=== PATIENT | male | born 1995 | race Caucasian/White ===

== ENCOUNTER 2018-05-16 13:48 | Emergency (ER) | payer BC, SELFPAY ==
[2018-05-16 13:53] VITALS: BP 130/87; PULSE 82; RESP 16; TEMP 36.6; O2SAT 99
--- NOTE | 2018-05-16 14:39 | W.ED.GENAD ---
Discharge Plan Disposition Patient Disposition: HOME Condition: Stable Discharge Details Chief Complaint: PsychEval Clinical Impression: Anxiety Primary Care Provider: Sherwin Mixon ED Provider: Brendon Delvalle Home Meds and New Rx's Prescriptions: No Action No Known Home Meds RF: 0 Discharge Instructions Instructions: Stress (ED), Anxiety (ED) Additional Instructions: Please keep your follow-up appointment with [facility] for further discussion of your anxiety and stress. Please follow-up with primary care provider for further reassessment preferably next couple weeks to see if any further testing is needed. Referrals: [facility] [Provider Group] (Call the office and arrange follow-up appointment preferably in the next 2 weeks.) Discharge Data Discharge Date/Time-TO BE ENTERED AT DEPARTURE: 05/16/18 17:45 Medical Decision Making Patient presenting to the emergency department for chief complaint of confusion. Patient and his employer has noticed since February the patient has had worsening confusion, difficulty concentrating, some anxiety and increased stress which patient states it causes occasional chest discomfort, insomnia worsening appetite and lack of interest in his previous activities. Patient denies any suicidal or homicidal thoughts. 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 Patient does state that he occasionally feels down but does not go into any further details. Physical exam is unremarkable for any specific findings with normal neurological cardiac respiratory and HEENT exam. Plan to check labs including thyroid given patient stating insomnia weight loss but I am concerned about patient stating some may be underlying depression anxiety. Patient I do feel would benefit from speaking with mental health services given possible mental health component to his complaints. Review of labs is unremarkable and shows no worrisome findings. Mental health evaluation did show some signs of anxiety that may be contributing to his symptoms but no emergent need of admission or treatment at this time. Given that patient did report to mental health provider that he had a fall in October that he was not seen for with symptoms that sound consistent with concussion patient was offered CT imaging. After discussion of risks and benefit of CT imaging patient did want this performed. Images were reviewed and show no acute findings. Patient was discharged to keep a follow-up appointment with [facility] along with following up with [facility] internal medicine which he states he is already gone the paperwork for establishment of primary care there. Return precautions were discussed. After discussion of diagnosis and plan of care patient has no further needs, questions, or concerns and states clear understanding to return to the emergency department for any worsening symptoms. HPI General Mode of arrival: ambulatory. Date/Time Provider Initiated Documentation: 05/16/18 14:02. Limitations to Documentation: no limitations. Information obtained by: patient and RN notes reviewed. History of Present Illness 22 year old M presents to the emergency department with the chief complaint of confusion, Quality is described as other (denies pain), Patient started experiencing this month(s) (4) and it has been constant. No relieving factors improve symptom(s), No exacerbating factors reported . Patient notes no other symptoms.. Patient did receive the following treatments prior to arrival, none Related Data Home Medications Medication Instructions Recorded Confirmed Unknown [No Known Home Meds] 05/16/18 05/16/18 Allergies Allergy/AdvReac Type Severity Reaction Status Date / Time No Known Allergies Allergy Unverified 05/16/18 14:29 General Stated Complaint: PsychEval RAOUL: 2 Review of Systems Constitutional Denies body ache(s), Denies chills, Denies fever(s), Denies weight gain and Reports weight loss Eyes Denies change in vision ENT Denies sore throat and Denies throat swelling Cardiovascular Reports chest pain and Denies dyspnea Respiratory Denies cough and Denies dyspnea Gastrointestinal Denies abdominal pain, Denies diarrhea, Denies nausea and Denies vomiting Genitourinary Denies difficulty urinating and Denies dysuria Neurologic Reports behavioral changes and Reports confusion Psychiatric Reports abnormal sleep pattern, Reports anxiety, Reports behavioral changes, Reports change in appetite, Reports confusion, Reports depression, Reports difficulty concentrating, Denies panic attacks, Denies paranoia, Denies homicidal ideation and Denies suicidal ideation Endocrine Denies cold intolerance and Denies heat intolerance Hematologic/Lymphatic Denies easy bleeding and Denies easy bruising Allergic/Immunologic Denies throat swelling [facility] Medical History ADD (attention deficit disorder) (Acute) Social History Smoking/Tobacco Use Status: Former Tobacco Use Substance use type: former substance user and marijuana Do you feel safe at home: Yes Do you feel safe in your relationship?: Yes Exam Const General: cooperative Orientation: alert, awake and oriented x3 Limitations: mental status not altered HENAK Head: normal to inspection, normocephalic and atraumatic Ears: hearing grossly normal bilaterally Mouth: moist mucous membranes Eyes General: appearance normal, both eyes and all related structures Pupils: PERRL EOM: EOM intact bilaterally Neck Thyroid: thyroid normal Resp Effort & Inspection: normal respiratory effort, able to speak in complete sentences and no respiratory distress Auscultation: clear to auscultation bilaterally Cardio Rate: regular rate and not tachycardic Rhythm: regular rhythm Heart Sounds: S1 normal, S2 normal, no click, no gallops, no murmurs and no rubs Neuro General: alert, awake, oriented x3, gait normal, moves all extremities, no meningeal signs, no focal motor deficits, CN's II-XI intact bilaterally and not confused Cognition: normal cognition Speech: speech normal Gait: normal gait Motor: muscle tone normal throughout, strength 5/5 throughout and no pronator drift Sensory Exam: no sensory deficits noted Coordination: fjblpc-[id number]-pfra test normal, qdln-nk-lkso test normal, Romberg test normal, tandem gait normal, Does not sway with eyes open, rapid alternating movement UE normal and rapid alternating movement LE normal Psych Speech and Movement: speech and movement normal and speech clear Mood: not paranoid Affect: blunted Attitude: cooperative Thought Process: tangential Thought Content: normal, no homicidality and suicidality Course Vital Signs Temperature 36.6 C 05/16/18 13:53 Pulse 82 05/16/18 13:53 Respiratory Rate 16 05/16/18 13:53 Blood Pressure 130/87 05/16/18 13:53 Pulse Oximetry 99 05/16/18 13:53 Temperature 36.6 C 05/16/18 13:53 Temperature Source Skin 05/16/18 13:53 Pulse 82 05/16/18 13:53 Respiratory Rate 16 05/16/18 13:53 Respiratory Effort Non-Labored 05/16/18 13:56 Blood Pressure 130/87 05/16/18 13:53 Pulse Oximetry 99 05/16/18 13:53 Oxygen Delivery Method Room Air 05/16/18 13:53 Oxygen Flow Rate 0 05/16/18 13:53
--- NOTE | 2018-05-16 14:42 | ED.GENADUL_ITS ---
Discharge Plan Disposition Patient Disposition: HOME Condition: Stable Discharge Details Chief Complaint: PsychEval Clinical Impression: Anxiety Primary Care Provider: Sherwin Mixon ED Provider: Brendon Delvalle Home Meds and New Rx's Prescriptions: No Action No Known Home Meds RF: 0 Discharge Instructions Instructions: Stress (ED), Anxiety (ED) Additional Instructions: Please keep your follow-up appointment with [facility] for further discussion of your anxiety and stress. Please follow-up with primary care provider for further reassessment preferably next couple weeks to see if any further testing is needed. Referrals: [facility] [Provider Group] (Call the office and arrange follow- up appointment preferably in the next 2 weeks.) Discharge Data Discharge Date/Time-TO BE ENTERED AT DEPARTURE: 05/16/18 17:45 Medical Decision Making Patient presenting to the emergency department for chief complaint of confusion. Patient and his employer has noticed since February the patient has had worsening confusion, difficulty concentrating, some anxiety and increased stress which patient states it causes occasional chest discomfort, insomnia worsening appetite and lack of interest in his previous activities. Patient denies any suicidal or homicidal thoughts. 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 Patient does state that he occasionally feels down but does not go into any further details. Physical exam is unremarkable for any specific findings with normal neurological cardiac respiratory and HEENT exam. Plan to check labs including thyroid given patient stating insomnia weight loss but I am concerned about patient stating some may be underlying depression anxiety. Patient I do feel would benefit from speaking with mental health services given possible mental health component to his complaints. Review of labs is unremarkable and shows no worrisome findings. Mental health evaluation did show some signs of anxiety that may be contributing to his symptoms but no emergent need of admission or treatment at this time. Given that patient did report to mental health provider that he had a fall in October that he was not seen for with symptoms that sound consistent with concussion patient was offered CT imaging. After discussion of risks and benefit of CT imaging patient did want this performed. Images were reviewed and show no acute findings. Patient was discharged to keep a follow-up appointment with [facility] along with following up with [facility] internal medicine which he states he is already gone the paperwork for establishment of primary care there. Return precautions were discussed. After discussion of diagnosis and plan of care patient has no further needs, questions, or concerns and states clear understanding to return to the emergency department for any worsening symptoms. HPI General Mode of arrival: ambulatory . Date/Time Provider Initiated Documentation: 05/16/18 14:02 . Limitations to Documentation: no limitations . Information obtained by: patient and RN notes reviewed . History of Present Illness 22 year old M presents to the emergency department with the chief complaint of confusion, Quality is described as other (denies pain), Patient started experiencing this month(s) (4) and it has been constant. No relieving factors improve symptom(s), No exacerbating factors reported . Patient notes no other symptoms.. Patient did receive the following treatments prior to arrival, none Related Data Home Medications Medication Instructions Recorded Confirmed Unknown [No Known Home Meds] 05/16/18 05/16/18 Allergies Allergy/AdvReac Type Severity Reaction Status Date / Time No Known Allergies Allergy Unverified 05/16/18 14:29 General Stated Complaint: PsychEval RAOUL: 2 Review of Systems Constitutional Denies body ache(s), Denies chills, Denies fever(s), Denies weight gain and Reports weight loss Eyes Denies change in vision ENT Denies sore throat and Denies throat swelling Cardiovascular Reports chest pain and Denies dyspnea Respiratory Denies cough and Denies dyspnea Gastrointestinal Denies abdominal pain, Denies diarrhea, Denies nausea and Denies vomiting Genitourinary Denies difficulty urinating and Denies dysuria Neurologic Reports behavioral changes and Reports confusion Psychiatric Reports abnormal sleep pattern, Reports anxiety, Reports behavioral changes, Reports change in appetite, Reports confusion, Reports depression, Reports difficulty concentrating, Denies panic attacks, Denies paranoia, Denies homicidal ideation and Denies suicidal ideation Endocrine Denies cold intolerance and Denies heat intolerance Hematologic/Lymphatic Denies easy bleeding and Denies easy bruising Allergic/Immunologic Denies throat swelling [facility] Medical History ADD (attention deficit disorder) (Acute) Social History Smoking/Tobacco Use Status: Former Tobacco Use Substance use type: former substance user and marijuana Do you feel safe at home: Yes Do you feel safe in your relationship?: Yes Exam Const General: cooperative Orientation: alert, awake and oriented x3 Limitations: mental status not altered HENNY Head: normal to inspection, normocephalic and atraumatic Ears: hearing grossly normal bilaterally Mouth: moist mucous membranes Eyes General: appearance normal, both eyes and all related structures Pupils: PERRL EOM: EOM intact bilaterally Neck Thyroid: thyroid normal Resp Effort & Inspection: normal respiratory effort, able to speak in complete sentences and no respiratory distress Auscultation: clear to auscultation bilaterally Cardio Rate: regular rate and not tachycardic Rhythm: regular rhythm Heart Sounds: S1 normal, S2 normal, no click, no gallops, no murmurs and no rubs Neuro General: alert, awake, oriented x3, gait normal, moves all extremities, no meningeal signs, no focal motor deficits, CN's II-XI intact bilaterally and not confused Cognition: normal cognition Speech: speech normal Gait: normal gait Motor: muscle tone normal throughout, strength 5/5 throughout and no pronator drift Sensory Exam: no sensory deficits noted Coordination: azhnso-nt-eute test normal, zoiz-uc-ytzc test normal, Romberg test normal, tandem gait normal, Does not sway with eyes open, rapid alternating movement UE normal and rapid alternating movement LE normal Psych Speech and Movement: speech and movement normal and speech clear Mood: not paranoid Affect: blunted Attitude: cooperative Thought Process: tangential Thought Content: normal, no homicidality and suicidality Course Vital Signs Temperature 36.6 C 05/16/18 13:53 Pulse 82 05/16/18 13:53 Respiratory Rate 16 05/16/18 13:53 Blood Pressure 130/87 05/16/18 13:53 Pulse Oximetry 99 05/16/18 13:53 Temperature 36.6 C 05/16/18 13:53 Temperature Source Skin 05/16/18 13:53 Pulse 82 05/16/18 13:53 Respiratory Rate 16 05/16/18 13:53 Respiratory Effort Non-Labored 05/16/18 13:56 Blood Pressure 130/87 05/16/18 13:53 Pulse Oximetry 99 05/16/18 13:53 Oxygen Delivery Method Room Air 05/16/18 13:53 Oxygen Flow Rate 0 05/16/18 13:53
[2018-05-16 14:50] LABS: Bilirubin Negative (Negative); Blood Negative (Negative); Clarity Clear; Glucose Negative (Negative); Ketones Negative (Negative); Leukocyte Esterase Negative (Negative); Nitrite Negative (Negative); Specific Gravity 1.015 (1.005-1.025); Urobilinogen 0.2 EU/dL (Up TO 0.2); pH 5.5 (5-8)
[2018-05-16 15:05] LABS: Abs Immature Grans 0.02 k/cumm (0.0-0.09); Absolute Basophil Count 0.02 k/cumm (0.0-0.2); Absolute Eosinophil Count 0.03 k/cumm (0.0-0.7); Absolute Lymphocyte Count 1.31 k/cumm (1.2-3.4); Absolute Monocyte Count 0.49 k/cumm (0.11-0.7); Absolute Neutrophil Count 6.15 k/cumm (1.2-6.7); Basophils % 0.2; Eosinophils % 0.4; HCT 42.5 % (40.0-50.0); HGB 14.8 g/dL (13.5-17.5); Immature Grans % 0.2; Lymphocytes % 16.3; Mean Corp. HGB Concentration 34.8 g/dL (32.0-36.0); Monocytes % 6.1; Neutrophils % 76.8; Platelet Count 248 x1000/uL (130-400); RBC 4.94 m/cumm (4.50-6.00); RBC Distribution Width 12.4 % (11.8-14.1); White Blood Cell Count 8.02 k/cumm (4.4-10.8)
[2018-05-16 15:30] LABS: ALT 27 U/L (12-78); AST 24 U/L (15-37); Albumin 4.9 g/dL (3.4-5.0); Alkaline Phosphatase 69 U/L (46-116); Anion Gap 10.4 mmol/L (3-11); BUN 18 mg/dL (7-18); Bilirubin, Total 0.6 mg/dL (0.2-1.0); CO2 28.6 mmol/L (21.0-32.0); CREATININE 0.97 mg/dL (0.70-1.30); Calcium 9.2 mg/dL (8.5-10.1); Chloride 99 mmol/L (98-107); Glucose 92 mg/dL (70-100); Potassium 3.8 mmol/L (3.5-5.1); Sodium 138 mmol/L (136-145); Total Protein 8.1 g/dL (6.4-8.2)
--- NOTE | 2018-05-16 16:39 | PDOC.MHCN ---
Date of service: 05/16/18 Time of Service: 16:40 Mental Health Crisis Note Presenting Issue How did you arrive at the ED and why did you come: Emily's supervisor [employer] brings him to the ER due to concerns that Emily has been experiencing confusion and personality changes over the last few months. Precipitating Factors Emily denies suicidal ideation and states he could never do that to his dad. He denies hallucinations but shares that his mom is paranoid-schizophrenic and he fears that he may be developing symptoms of schizophrenia. He describes lots of stressors and paranoia but what he calls paranoia is more likely to be anxiety than paranoia. Disposition BEHAVIOR: Pleasant and cooperative. EYE CONTACT: Intermittent - frequently stares at the wall or the floor but does make eye contact at times. MOOD: Anxious, depressed. AFFECT: Congruent to mood. APPETITE: Good currently. SLEEP(trouble falling/staying asleep: Reports erratic sleep - sometimes not sleeping for days and at other times sleeping fine. Plan Emily is returning home. He is provided a therapy appointment at [facility] with Samia Young on May 23, 2018 at 11:00 a.m. He is also given contact information for [facility] emergency services and instructed to call as needed. Signature Clinician's Name/Title: Michelle Phillips BA, [facility] [employer]
--- NOTE | 2018-05-16 16:42 | DI.CT_ITS ---
SYMPTOM/DIAGNOSIS: CONFUSION, H/O HEAD INJURY 6 MONTHS AGO, HEADACHES NONCONTRAST HEAD CT: No intracranial hemorrhage, mass or infarct is seen. There is asymmetry of the ventricles, within normal limits of variation. There is no evidence of skull fracture. The sinuses and mastoid air cells appear clear where visualized. IMPRESSION: Negative head CT.
--- NOTE | 2018-05-16 16:50 | PDOC.MHCN_ITS ---
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 Precipitating Factors Emily denies suicidal ideation and states he could never do that to his dad. He denies hallucinations but shares that his mom is paranoid-schizophrenic and he fears that he may be developing symptoms of schizophrenia. He describes lots of stressors and paranoia but what he calls paranoia is more likely to be anxiety than paranoia. Disposition BEHAVIOR: Pleasant and cooperative. EYE CONTACT: Intermittent - frequently stares at the wall or the floor but does make eye contact at times. MOOD: Anxious, depressed. AFFECT: Congruent to mood. APPETITE: Good currently. SLEEP(trouble falling/staying asleep: Reports erratic sleep - sometimes not sleeping for days and at other times sleeping fine. Plan Emily is returning home. He is provided a therapy appointment at [facility] with Samia Young on May 23, 2018 at 11:00 a.m. He is also given contact information for [facility] emergency services and instructed to call as needed. Signature Clinician's Name/Title: Michelle Phillips BA, [facility] [employer]
--- NOTE | 2018-05-16 17:24 | DI.VRAD_ITS ---
EXAM: CT Head Without Contrast EXAM DATE/TIME: 05/16/2018 4:43 PM CLINICAL HISTORY: 22 years old, male; Injury or trauma; Fall; Late effect from previous injury; Blunt trauma (contusions or hematomas); Injury details: Injury 6 months ago, headaches and occasional blackouts since TECHNIQUE: Axial computed tomography images of the head/brain without contrast. Coronal and sagittal reformatted images were created and reviewed. COMPARISON: No relevant prior studies available. FINDINGS: Brain: Ventricles and the cortical sulci are within normal limits. There is no evidence of acute hemorrhage, mass or shift. There is no evidence of an acute cortical or major vascular territory infarct. No abnormal extra-axial collections are identified. Ventricles: Left lateral ventricle is slightly larger than the right, a normal variant. There is no significant ventricular enlargement/hydrocephalus. Bones/joints: No acute bony abnormality Sinuses: No significant sinus opacification Mastoid air cells: No significant mastoid opacification Soft tissues: Subcutaneous soft tissues are unremarkable IMPRESSION: No acute findings Dictated and Authenticated by: Geraldine Gallardo MD. Ordering:KHUSHBU Olivas MD
--- NOTE | 2018-05-17 10:01 | PDOC.ERCMPRO ---
Care Management Progress Note 05/17-Aubrey WELFARE WORKER requested assistance with a PCP f/u in two weeks for recheck of anxiety and depression. Patient was a [facility] patient but is in the process of transferring records to [facility]. Referral faxed to [facility] this am.
--- NOTE | 2018-05-17 10:02 | CMPROGNOTE_ITS ---
Care Management Progress Note 05/17-Aubrey CIRCULAR CLERK requested assistance with a PCP f/u in two weeks for recheck of anxiety and depression. Patient was a [facility] patient but is in the process of transferring records to [facility]. Referral faxed to [facility] this am.
== END 2018-05-16 17:45 | disposition home or self-care (01) ==
LOC: ER 17:14
PROVIDERS: Emergency Provider Nurse Practitioner Family; PCP Emergency Medicine
DX: F41.9 Anxiety disorder, unspecified (principal)
CPT/HCPCS: 36415; 80053; 99284; 70450; 81003; 84443; 85025

== ENCOUNTER 2018-06-19 00:46 | Outpatient (CLI) | payer BC, SELFPAY ==
[2018-06-19 18:11] LABS: ALT 26 U/L (12-78); AST 24 U/L (15-37); Albumin 4.4 g/dL (3.4-5.0); Alkaline Phosphatase 63 U/L (46-116); Anion Gap 8.5 mmol/L (3-11); BUN 13 mg/dL (7-18); Bilirubin, Total 0.5 mg/dL (0.2-1.0); CO2 28.5 mmol/L (21.0-32.0); CREATININE 1.14 mg/dL (0.70-1.30); Calcium 9.4 mg/dL (8.5-10.1); Chloride 103 mmol/L (98-107); Cholesterol 168 mg/dL (50-200); Glucose 86 mg/dL (70-100); HDL Cholesterol 70 mg/dL (40-60); LDL CHOLESTEROL 84 mg/dL (<100); Potassium 4.1 mmol/L (3.5-5.1); Sodium 140 mmol/L (136-145); Total Protein 7.3 g/dL (6.4-8.2); Triglyceride 41 mg/dL (30-150)
== END 2018-06-19 01:06 ==
PROVIDERS: PCP Family Medicine; Visit Provider Family Medicine
DX: Z13.220 Encounter for screening for lipoid disorders (principal); Z82.49 Family history of ischemic heart disease and other diseases of the circulatory system; Z13.228 Encounter for screening for other metabolic disorders
CPT/HCPCS: 36415; 80053; 80061; 83721

== ENCOUNTER 2020-06-28 10:22 | Outpatient (CLI) | payer BC, SELFPAY ==
[2020-06-29 13:09] LABS: COVID-19 RT-PCR UVMMC Result Positive (Negative)
== END 2020-06-28 10:23 | disposition home or self-care (01) ==
LOC: LBO 10:22
PROVIDERS: PCP Family Medicine; Visit Provider Family Medicine
DX: Z20.822 Contact with and (suspected) exposure to COVID-19 (principal)
CPT/HCPCS: U0003

== ENCOUNTER 2020-08-03 02:57 | Outpatient (CLI) | payer BC, SELFPAY ==
[2020-08-03 10:21] LABS: Cholesterol 187 mg/dL (<200); HDL Cholesterol 24 mg/dL (40-60); Triglyceride 608 mg/dL (<150)
[2020-08-03 10:32] LABS: LDL CHOLESTEROL 65 mg/dL (<100)
== END 2020-08-03 02:58 | disposition home or self-care (01) ==
LOC: LBO 02:57
PROVIDERS: PCP Family Medicine; Visit Provider Family Medicine
DX: Z13.220 Encounter for screening for lipoid disorders (principal); Z82.49 Family history of ischemic heart disease and other diseases of the circulatory system
CPT/HCPCS: 36415; 80061; 83721

== ENCOUNTER 2021-03-07 19:05 | Emergency (ER) | payer BC, SELFPAY ==
--- NOTE | 2021-03-07 18:59 | W.ED.GENAD ---
Discharge Plan Disposition Patient Disposition: HOME Condition: Stable Discharge Details Clinical Impression: Anxiety, Chest pain, Stress at home Primary Care Provider: Sherwin Millard ED Provider: Raiza Ponce Home Meds and New Rx's Prescriptions: No Action No Known Home Meds RF: 0 Discharge Instructions Instructions: Chest Pain (ED), Anxiety (ED) Additional Instructions: Your lab work, EKG and imaging today are reassuring and show no evidence of acute abnormal findings. Drink plenty of fluids and get plenty of rest. Follow-up with [facility] tomorrow at [phone] for reevaluation. Follow-up with your primary care doctor in 1 week. Return to the emergency department with any worsening or new concerning symptoms. Discharge Data Discharge Date/Time-TO BE ENTERED AT DEPARTURE: 03/07/21 23:05 Discharge Physician: Raiza Ponce Medical Decision Making 25yo M w/ a h/o ADD and a family history of schizophrenia presents for feelings of a panic attack associated with chest pain in addition to recent drug use, lack of sleep and stress. Blood pressure mildly hypertensive, remainder vitals within normal limits. He appears somewhat anxious and paranoid but nontoxic. He answers most questions appropriately but frequently states he needs to reconnect and analyze and appears to defer answers some questions. He currently denies suicidal or homicidal ideation. PERC negative. History and presentation does not appear consistent with PE, dissection, ACS, meningitis. Screening labs, EKG and chest x-ray obtained and unremarkable. Patient is medically cleared. He has not yet given a urine sample. Case discussed with mental health who will evaluate by ZOOM at bedside. Discussed with mental health --patient denies suicidal or homicidal ideation. He is able to make eye contact and does not appear acutely psychotic at this time. No indications for involuntary status or seeking psychiatric placement at this time. Patient feels comfortable going home with dad. Dad feels comfortable with plan and plan is for him to call [facility] tomorrow morning for follow-up. Usual and customary return precautions given prior to discharge. Medical Records Medical records reviewed: Yes I reviewed the patient's medical records. Imaging Data Radiologic Study: Radiologist's impression: XR Chest Exam date and time: 03/07/2021 8:51 PM Age: 25 years old Clinical indication: Other: Generalized chest pain; Patient HX: Chest pain, AMS, R/O acute disease TECHNIQUE: Imaging protocol: XR of the chest. Views: 1 view. COMPARISON: No relevant prior studies available. FINDINGS: Lungs: Lungs are adequately inflated and symmetric. No focal consolidation or pulmonary edema. Pleural spaces: No pleural effusion. No pneumothorax. Heart/Mediastinum: Cardiomediastinal contours within normal limits. Bones/joints: No acute osseous finding. IMPRESSION: No acute findings. Lab Data Lab results reviewed: Yes I reviewed the patient's lab results. Labs: Laboratory Tests Range/Units 03/07/21 03/07/21 03/07/21 19:15 19:15 19:15 WBC (4.4-10.8) 10^3/uL 9.04 RBC (4.36-5.78) 10^6/uL 5.14 Hgb (13.5-17.5) g/dL 15.0 Hct (40.0-50.0) % 44.5 MCV (80-95) fL 86.6 MCH (27.0-33.0) pg 29.2 MCHC (32.0-36.0) % 33.7 RDW (11.8-14.1) % 11.8 Plt Count (130-400) 10^3/uL 283 MPV (8.0-11.0) fL 9.8 Immature Gran % 0.3 Neutrophils % 73.7 Lymphocytes % 17.9 Monocytes % 7.1 Eosinophils % 0.6 Basophils % 0.4 Nucleated RBC % % 0 Absolute Neutrophils (1.2-6.7) 10^3/uL 6.66 Absolute Lymphocytes (1.2-3.4) 10^3/uL 1.62 Absolute Monocytes (0.1-0.8) 10^3/uL 0.64 Absolute Eosinophils (0.0-0.7) 10^3/uL 0.05 Absolute Basophils (0.0-0.2) 10^3/uL 0.04 Sodium (136-145) mmol/L 142 Potassium (3.5-5.1) mmol/L 4.0 Chloride (98-107) mmol/L 105 Carbon Dioxide (21.0-32.0) mmol/L 27.6 Anion Gap (3-11) mmol/L 9.4 BUN (7-18) mg/dL 20 H Creatinine (0.70-1.30) mg/dL 1.0 Estimated GFR/1.73 m2 (mL/min/1.73m2) >= 60.00 Glucose (74-106) mg/dL 123 H Calcium (8.5-10.1) mg/dL 8.1 L Total Bilirubin (0.2-1.0) mg/dL 0.5 AST (15-37) U/L 26 ALT (16-63) U/L 39 Alkaline Phosphatase (46-116) U/L 47 Troponin I (<or=60) ng/L < 50 Total Protein (6.4-8.2) g/dL 7.2 Albumin (3.4-5.0) g/dL 4.2 Ethyl Alcohol (<10) mg/dL < 3.0 ECG Data Attestation: I personally reviewed and interpreted this ECG (s) as follows: Interpretation: rate of 78, sinus, no stemi, nondiagnostic. HPI General Mode of arrival: EMS. Date/Time Provider Initiated Documentation: 03/07/21 19:20. Limitations to Documentation: no limitations. Information obtained by: patient. HPI Narrative: Patient is a 25-year-old male with a history of ADD and family history of paranoid schizophrenia presents for feelings of a possible panic attack today. Patient states he smoked marijuana today which he thinks may have been different than his usual and started feeling chest pain and anxiety and asked his father to call 911. Patient states he has had increased stress recently and has not been sleeping well. He denies any chest pain at present. He denies any fever, recent illness, coughing, shortness of breath, abdominal pain, vomiting or diarrhea. Patient states he has been dealing with trauma for 13 years to which he deals with best when he is able to reconnect and analyze. He states he had taken Focalin before for his ADD but not for some time now and denies ever taking medication for depression or anxiety. He denies any other drug use or recent alcohol. He states earlier today he was thinking that the whole world was looking at me and thought that he wanted to kill himself. He denies any thoughts of wanting to harm anybody else. Related Data Home Medications Medication Instructions Recorded Confirmed Unknown [No Known Home Meds] 05/16/18 03/07/21 Allergies Allergy/AdvReac Type Severity Reaction Status Date / Time No Known Allergies Allergy Unverified 03/07/21 19:13 General RAOUL: 2 Review of Systems All systems reviewed & are unremarkable except as noted in HPI and below Constitutional Constitutional: Reports as per HPI, Denies chills and Denies fever(s) Eyes Eyes: Denies blurry vision ENT Ears, Nose, Mouth, and Throat: Denies dizziness, Denies sore throat and Denies throat swelling Cardiovascular Cardiovascular: Denies chest pain and Denies dyspnea Respiratory Respiratory: Denies cough and Denies dyspnea Gastrointestinal Gastrointestinal: Denies abdominal pain, Denies diarrhea and Denies vomiting Genitourinary Genitourinary: Denies hematuria and Denies dysuria Musculoskeletal Musculoskeletal: Denies back pain and Denies numbness Integumentary/Breasts Skin/Breast: Denies lesions and Denies rash Neurologic Neurologic: Denies dizziness, Denies localized weakness and Denies numbness Psychiatric Psychiatric: Reports abnormal sleep pattern, Reports anxiety, Reports change in appetite, Reports panic attacks, Reports visual hallucinations and Reports suicidal ideation Allergic/Immunologic Allergic/Immunologic: Denies throat swelling PFSH All Active Problems (Updated 03/09/21 @ 11:13 by Raiza Ponce DO) Anxiety (Chronic) Chest pain (Acute) Stress at home (Acute) Acute psychosis (Acute) Hypertriglyceridemia without hypercholesterolemia (Acute) Family history of coronary artery disease (Chronic) Medical History (Updated 03/09/21 @ 11:13 by Raiza Ponce DO) ADD (attention deficit disorder) Surgical History (Updated 06/30/20 @ 13:07 by Carlien Qureshi) No history of previous surgery Family History (System 06/30/20 @ 13:07 by Carline Qureshi) Father Hypertension Social History (System 06/30/20 @ 13:07 by Carline Qureshi) Smoking/Tobacco Use Status: Former Tobacco Use Tobacco: How many years used: 2 Smokeless tobacco user: other Smoking risk assessment performed?: Yes Alcohol Intake: current Alcohol Intake frequency: a few times a week Alcohol type: beer Drug use: Daily Substance use type: marijuana Caregiver/Support person: No Household members: other Details: lives with dad Communication Needs: None 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 Exam Const General: cooperative, healthy appearing, no acute distress and anxious Orientation: alert, awake and oriented x3 HENMT Head: normal to inspection Face and sinus: normal facial exam Eyes General: appearance normal, both eyes and all related structures Pupils: PERRL EOM: EOM intact bilaterally Neck Neck: normal visual inspection and No submandibular swelling Lymphatic: no lymphadenopathy noted Chest Chest: normal inspection of the chest and no tenderness Resp Effort & Inspection: normal respiratory effort and able to speak in complete sentences Auscultation: clear to auscultation bilaterally Cardio Rate: regular rate Rhythm: regular rhythm GI Inspection: normal to inspection Palpation: soft, not firm, not rigid and nontender Auscultation: normal bowel sounds Skin General skin exam: no rashes or lesions noted Neuro General: patient alert, patient awake and patient oriented x3 Cognition: normal cognition Speech: speech normal Motor: muscle tone normal throughout Sensory Exam: no sensory deficits noted Extrem General: normal to inspection, full ROM, capillary refill normal, no calf tenderness bilaterally and no edema Psych Appearance: grossly normal Mental Status: mental status grossly normal Speech and Movement: speech and movement normal Affect: normal affect
[2021-03-07 19:08] VITALS: BP 136/98; PULSE 81; RESP 18; TEMP 36.6; O2SAT 98
[2021-03-07 19:13] VITALS: RESP 20
[2021-03-07 19:30] LABS: Abs Immature Grans 0.03 10^3/uL (0.0-0.06); Absolute Basophil Count 0.04 10^3/uL (0.0-0.2); Absolute Eosinophil Count 0.05 10^3/uL (0.0-0.7); Absolute Lymphocyte Count 1.62 10^3/uL (1.2-3.4); Absolute Monocyte Count 0.64 10^3/uL (0.1-0.8); Absolute Neutrophil Count 6.66 10^3/uL (1.2-6.7); Basophils % 0.4; Eosinophils % 0.6; HCT 44.5 % (40.0-50.0); Immature Grans % 0.3; Lymphocytes % 17.9; MCH 29.2 pg (27.0-33.0); MCHC 33.7 % (32.0-36.0); MCV 86.6 fL (80-95); MPV 9.8 fL (8.0-11.0); Monocytes % 7.1; Neutrophils % 73.7; Nucleated RBC 0 %; Platelet Count 283 10^3/uL (130-400); RBC 5.14 10^6/uL (4.36-5.78); RDW 11.8 % (11.8-14.1); RDW-SD 37.7 fL; WBC 9.04 10^3/uL (4.4-10.8)
[2021-03-07 19:43] LABS: ALT 39 U/L (16-63); AST 26 U/L (15-37); Albumin 4.2 g/dL (3.4-5.0); Alkaline Phosphatase 47 U/L (46-116); Anion Gap 9.4 mmol/L (3-11); BUN 20 mg/dL (7-18); Bilirubin, Total 0.5 mg/dL (0.2-1.0); CO2 27.6 mmol/L (21.0-32.0); Calcium 8.1 mg/dL (8.5-10.1); Chloride 105 mmol/L (98-107); Glucose 123 mg/dL (74-106); Sodium 142 mmol/L (136-145); Total Protein 7.2 g/dL (6.4-8.2)
[2021-03-07 19:53] LABS: ETHANOL BLOOD < 3.0 mg/dL (<10)
--- NOTE | 2021-03-07 20:45 | DI.RAD_ITS ---
Exam(s) XR PORTABLE CHEST AP EXAM: XR PORTABLE CHEST AP CLINICAL HISTORY: chest pain, r/o acute disease TECHNIQUE: 2D digital imaging was performed of the chest. One image was obtained. An AP view was ob tained. COMPARISON: No exams were available for comparison FINDINGS: MEDIASTINUM: Normal. HEART: Normal. PULMONARY VASCULATURE: Normal. LUNGS: Clear. PLEURAL SPACE: No pleural effusion or pneumothorax. BONE:Within normal limits for the patient's age. OTHER FINDINGS:Normal. IMPRESSION: No acute pulmonary findings. DATA REPOSITORY: RADIATION DOSE DELIVERED:
--- NOTE | 2021-03-07 20:45 | RT.EKG_ITS ---
APPROVED REPORT Exam: Resting ECG Reason for Exam: chest pain Patient Location: E HR:78 bpm ECG Measurements Heart Rate 78 AXIS NJ 137 P 69 QRSd 75 QRS 56 QT 353 T 53 QTc 402 Conclusion Sinus rhythm...normal P axis, V-rate 60- 99. Sinus. No STEMI. I have reviewed and interpreted ECG and agree with software generated interpretation.
[2021-03-07 21:12] LABS: Troponin I < 50 ng/L (<or=60)
--- NOTE | 2021-03-07 21:41 | DI.VRAD_ITS ---
PROCEDURE INFORMATION: Exam: XR Chest Exam date and time: 03/07/2021 8:51 PM Age: 25 years old Clinical indication: Other: Generalized chest pain; Patient HX: Chest pain, AMS, R/O acute disease TECHNIQUE: Imaging protocol: XR of the chest. Views: 1 view. COMPARISON: No relevant prior studies available. FINDINGS: Lungs: Lungs are adequately inflated and symmetric. No focal consolidation or pulmonary edema. Pleural spaces: No pleural effusion. No pneumothorax. Heart/Mediastinum: Cardiomediastinal contours within normal limits. Bones/joints: No acute osseous finding. IMPRESSION: No acute findings. Dictated and Authenticated by: Jeffrey Charlton MD. Ordering:RIDDHI Eastman MD
[2021-03-07 22:56] VITALS: BP 136/98; PULSE 81; RESP 20; TEMP 36.6; O2SAT 98
== END 2021-03-07 23:05 | disposition home or self-care (01) ==
PROVIDERS: Emergency Provider Physician Assistant; PCP Family Medicine
DX: F41.9 Anxiety disorder, unspecified (principal); R07.9 Chest pain, unspecified; Z73.3 Stress, not elsewhere classified
CPT/HCPCS: 80053; 93005; 99284; 71045; 80320; 84484; 85025; 93010; 99283

== ENCOUNTER 2021-03-09 07:20 | Emergency (ER) | payer BC, SELFPAY ==
[2021-03-09 07:24] VITALS: BP 133/80; PULSE 85; RESP 8; TEMP 35.4; O2SAT 98
--- NOTE | 2021-03-09 08:25 | W.ED.GENAD ---
Discharge Plan Disposition Patient Disposition: [facility] Condition: Stable Discharge Details Clinical Impression: Acute psychosis Primary Care Provider: Sherwin Millard ED Provider: Raiza Ponce Home Meds and New Rx's Prescriptions: No Action No Known Home Meds RF: 0 Discharge Data Discharge Date/Time-TO BE ENTERED AT DEPARTURE: 03/11/21 14:39 Medical Decision Making <Raiza Ponce DO - Last Filed: 03/16/21 16:02> 03/09/21 6544 -- 25-year-old male with a history of ADD and family history of paranoid schizophrenia presents for report of hallucinations after smoking marijuana. Difficult to obtain history from patient. While speaking to him he states I am Hakan Norma and I am against slavery.and when asked if he is suicidal he states no and when asked if he is homicidal he appears to respond to internal stimuli stating No, Hakan we can't do that and No Hakan, I'm not going to do that. Patient appears to be responding to internal stimuli with concern for acute psychosis. Screening labs obtained and unremarkable. UDS notes THC. Will consult mental health. Discussed with Corrie and plan is for EE. She states that patient is agreeable to placement but at this point we do not feel he has capacity to make decisions and are concerned acutely for his safety and needing inpatient hospitalization and treatment. Discussed with patient's father over the phone who states that he called 911 this morning after he heard patient yelling at 3 AM. He states patient was talking to a cushion and yelling at the TV and table. Father states patient was stating Rojas put it down and Gus, stop doing that and stop yelling, and quit yelling. Father states that patient is usually a hard worker and quite meticulous but states this morning pt was acting irrational. 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 He states he is not sleeping and eating well. He states he does smoke marijuana regularly but denies any significant increase in drug or alcohol use. Father informed of plan and agreeable. 1600 -- Pt cooperative for duration of shift. Case endorsed to Dr. Harrell to continue to monitor while awaiting placement. 03/10/21 3320 --discussed with Corrie from mental health and states that the EE did not go through from a legal standpoint as it was not clear that patient is a danger to himself or others. Corrie will come to evaluate at bedside. 1100 -- Dr. Hill evaluated pt through telehealth visit. His assessment is that patient is experiencing acute psychotic episode. He feels the likelihood that this is related to drugs appears well. He feels that patient should be continued on plan for seeking inpatient hospitalization through the ED as he has demonstrated that he has severely impaired self-care without eating, sleeping and endorses some SI. He does not have decision-making capacity and hence cannot be voluntary at this time. Recommends Zyprexa 10 mg p.o. twice daily and Ativan 1 mg every 2 hours up to 4 times daily as needed for anxiety. Recommends for breakthrough agitation can consider Haldol, Ativan or Zyprexa IM. 1500 -- EE paperwork completed again to have pt remain involuntary due to his acute psychosis without decision-making capacity and need for inpatient hospitalization. 1900 -- second certificate completed. Patient has otherwise been cooperative. Case endorsed to Dr. Vaughn to continue to monitor overnight while waiting placement. 03/11/21 1250 --Case discussed with Dr. Hill who evaluated patient through telepsych visit --patient still appears paranoid but more coherent today, likely attributable to the medication. Recommends continuing the olanzapine at 10 mg twice daily or can start 20 mg nightly as well as continuing the prn Ativan if needed. 1400 --patient accepted to [facility]. Accepting physician Dr. Garcia. Pt transported by school age program associate in no acute distess. Medical Records Medical records reviewed: Yes I reviewed the patient's medical records. Lab Data Lab results reviewed: Yes I reviewed the patient's lab results. Lab results narrative: 03/09/21 09:05 Urine - Reflex from Ua Urine Culture - Pending Laboratory Tests Range/Units 03/09/21 03/09/21 03/09/21 08:26 08:26 09:05 WBC (4.4-10.8) 10^3/uL 8.23 RBC (4.36-5.78) 10^6/uL 4.98 Hgb (13.5-17.5) g/dL 14.5 Hct (40.0-50.0) % 43.3 MCV (80-95) fL 86.9 MCH (27.0-33.0) pg 29.1 MCHC (32.0-36.0) % 33.5 RDW (11.8-14.1) % 11.7 L Plt Count (130-400) 10^3/uL 266 MPV (8.0-11.0) fL 9.6 Immature Gran % 0.2 Neutrophils % 77.0 Lymphocytes % 15.7 Monocytes % 6.2 Eosinophils % 0.4 Basophils % 0.5 Nucleated RBC % % 0 Absolute Neutrophils (1.2-6.7) 10^3/uL 6.34 Absolute Lymphocytes (1.2-3.4) 10^3/uL 1.29 Absolute Monocytes (0.1-0.8) 10^3/uL 0.51 Absolute Eosinophils (0.0-0.7) 10^3/uL 0.03 Absolute Basophils (0.0-0.2) 10^3/uL 0.04 Sodium (136-145) mmol/L 141 Potassium (3.5-5.1) mmol/L 4.3 Chloride (98-107) mmol/L 105 Carbon Dioxide (21.0-32.0) mmol/L 27.7 Anion Gap (3-11) mmol/L 8.3 BUN (7-18) mg/dL 20 H Creatinine (0.70-1.30) mg/dL 1.2 Estimated GFR/1.73 m2 (mL/min/1.73m2) >= 60.00 Glucose (74-106) mg/dL 104 Calcium (8.5-10.1) mg/dL 9.3 Total Bilirubin (0.2-1.0) mg/dL 0.6 AST (15-37) U/L 19 ALT (16-63) U/L 31 Alkaline Phosphatase (46-116) U/L 49 Total Protein (6.4-8.2) g/dL 7.7 Albumin (3.4-5.0) g/dL 4.7 Urine Color (Yellow) Urine Clarity (Clear) Urine pH (5-8) Ur Specific [place] (1.005-1.025) Urine Protein (Negative) mg/dL Urine Ketones (Negative) mg/dL Urine Blood (Negative) Urine Nitrite (Negative) Urine Bilirubin (Negative) Urine Urobilinogen (Up TO 0.2) EU/dL Ur Leukocyte Esterase (Negative) Urine RBC (0-2) HPF Urine WBC (0-5) HPF Ur Epithelial Cells (Negative) HPF Urine Crystals (Negative) HPF Urine Bacteria (Negative) HPF Urine Casts (Negative) LPF Urine Mucus (Negative) Ur Culture Indicated? Urine Glucose (Negative) mg/dL Urine Opiates Screen (Negative) Negative Urine Methadone Screen (Negative) Negative Ur Barbiturates Screen (Negative) Negative Ur Tricyclics Screen (Negative) Negative Ur Amphetamines Screen (Negative) Negative U Benzodiazepines Scrn (Negative) Negative Urine Cocaine Screen (Negative) Negative Ur THC Screen (Negative) Positive A Ethyl Alcohol (<10) mg/dL < 3.0 COVID-19 Source SARS-CoV-2 (PCR) (Negative) Range/Units 03/09/21 03/09/21 09:05 13:15 WBC (4.4-10.8) 10^3/uL RBC (4.36-5.78) 10^6/uL Hgb (13.5-17.5) g/dL Hct (40.0-50.0) % MCV (80-95) fL MCH (27.0-33.0) pg MCHC (32.0-36.0) % RDW (11.8-14.1) % Plt Count (130-400) 10^3/uL MPV (8.0-11.0) fL Immature Gran % Neutrophils % Lymphocytes % Monocytes % Eosinophils % Basophils % Nucleated RBC % % Absolute Neutrophils (1.2-6.7) 10^3/uL Absolute Lymphocytes (1.2-3.4) 10^3/uL Absolute Monocytes (0.1-0.8) 10^3/uL Absolute Eosinophils (0.0-0.7) 10^3/uL Absolute Basophils (0.0-0.2) 10^3/uL Sodium (136-145) mmol/L Potassium (3.5-5.1) mmol/L Chloride (98-107) mmol/L Carbon Dioxide (21.0-32.0) mmol/L Anion Gap (3-11) mmol/L BUN (7-18) mg/dL Creatinine (0.70-1.30) mg/dL Estimated GFR/1.73 m2 (mL/min/1.73m2) Glucose (74-106) mg/dL Calcium (8.5-10.1) mg/dL Total Bilirubin (0.2-1.0) mg/dL AST (15-37) U/L ALT (16-63) U/L Alkaline Phosphatase (46-116) U/L Total Protein (6.4-8.2) g/dL Albumin (3.4-5.0) g/dL Urine Color (Yellow) Yellow Urine Clarity (Clear) Clear Urine pH (5-8) 6.0 Ur Specific [place] (1.005-1.025) >= 1.030 H Urine Protein (Negative) mg/dL Negative Urine Ketones (Negative) mg/dL Trace H Urine Blood (Negative) Trace-intact H Urine Nitrite (Negative) Negative Urine Bilirubin (Negative) Negative Urine Urobilinogen (Up TO 0.2) EU/dL 0.2 Ur Leukocyte Esterase (Negative) Negative Urine RBC (0-2) HPF 3-5 H Urine WBC (0-5) HPF 0-2 Ur Epithelial Cells (Negative) HPF Rare Urine Crystals (Negative) HPF Negative Urine Bacteria (Negative) HPF Few Urine Casts (Negative) LPF Negative Urine Mucus (Negative) Moderate Ur Culture Indicated? Yes Urine Glucose (Negative) mg/dL Negative Urine Opiates Screen (Negative) Urine Methadone Screen (Negative) Ur Barbiturates Screen (Negative) Ur Tricyclics Screen (Negative) Ur Amphetamines Screen (Negative) U Benzodiazepines Scrn (Negative) Urine Cocaine Screen (Negative) Ur THC Screen (Negative) Ethyl Alcohol (<10) mg/dL COVID-19 Source Nasal/Nares SARS-CoV-2 (PCR) (Negative) Negative Labs: 03/09/21 09:05 Urine - Reflex from Ua Urine Culture - Pending Laboratory Tests Range/Units 03/09/21 03/09/21 03/09/21 08:26 08:26 09:05 WBC (4.4-10.8) 10^3/uL 8.23 RBC (4.36-5.78) 10^6/uL 4.98 Hgb (13.5-17.5) g/dL 14.5 Hct (40.0-50.0) % 43.3 MCV (80-95) fL 86.9 MCH (27.0-33.0) pg 29.1 MCHC (32.0-36.0) % 33.5 RDW (11.8-14.1) % 11.7 L Plt Count (130-400) 10^3/uL 266 MPV (8.0-11.0) fL 9.6 Immature Gran % 0.2 Neutrophils % 77.0 Lymphocytes % 15.7 Monocytes % 6.2 Eosinophils % 0.4 Basophils % 0.5 Nucleated RBC % % 0 Absolute Neutrophils (1.2-6.7) 10^3/uL 6.34 Absolute Lymphocytes (1.2-3.4) 10^3/uL 1.29 Absolute Monocytes (0.1-0.8) 10^3/uL 0.51 Absolute Eosinophils (0.0-0.7) 10^3/uL 0.03 Absolute Basophils (0.0-0.2) 10^3/uL 0.04 Sodium (136-145) mmol/L 141 Potassium (3.5-5.1) mmol/L 4.3 Chloride (98-107) mmol/L 105 Carbon Dioxide (21.0-32.0) mmol/L 27.7 Anion Gap (3-11) mmol/L 8.3 BUN (7-18) mg/dL 20 H Creatinine (0.70-1.30) mg/dL 1.2 Estimated GFR/1.73 m2 (mL/min/1.73m2) >= 60.00 Glucose (74-106) mg/dL 104 Calcium (8.5-10.1) mg/dL 9.3 Total Bilirubin (0.2-1.0) mg/dL 0.6 AST (15-37) U/L 19 ALT (16-63) U/L 31 Alkaline Phosphatase (46-116) U/L 49 Total Protein (6.4-8.2) g/dL 7.7 Albumin (3.4-5.0) g/dL 4.7 Urine Color (Yellow) Urine Clarity (Clear) Urine pH (5-8) Ur Specific [place] (1.005-1.025) Urine Protein (Negative) mg/dL Urine Ketones (Negative) mg/dL Urine Blood (Negative) Urine Nitrite (Negative) Urine Bilirubin (Negative) Urine Urobilinogen (Up TO 0.2) EU/dL Ur Leukocyte Esterase (Negative) Urine RBC (0-2) HPF Urine WBC (0-5) HPF Ur Epithelial Cells (Negative) HPF Urine Crystals (Negative) HPF Urine Bacteria (Negative) HPF Urine Casts (Negative) LPF Urine Mucus (Negative) Ur Culture Indicated? Urine Glucose (Negative) mg/dL Urine Opiates Screen (Negative) Negative Urine Methadone Screen (Negative) Negative Ur Barbiturates Screen (Negative) Negative Ur Tricyclics Screen (Negative) Negative Ur Amphetamines Screen (Negative) Negative U Benzodiazepines Scrn (Negative) Negative Urine Cocaine Screen (Negative) Negative Ur THC Screen (Negative) Positive A Ethyl Alcohol (<10) mg/dL < 3.0 Range/Units 03/09/21 09:05 WBC (4.4-10.8) 10^3/uL RBC (4.36-5.78) 10^6/uL Hgb (13.5-17.5) g/dL Hct (40.0-50.0) % MCV (80-95) fL MCH (27.0-33.0) pg MCHC (32.0-36.0) % RDW (11.8-14.1) % Plt Count (130-400) 10^3/uL MPV (8.0-11.0) fL Immature Gran % Neutrophils % Lymphocytes % Monocytes % Eosinophils % Basophils % Nucleated RBC % % Absolute Neutrophils (1.2-6.7) 10^3/uL Absolute Lymphocytes (1.2-3.4) 10^3/uL Absolute Monocytes (0.1-0.8) 10^3/uL Absolute Eosinophils (0.0-0.7) 10^3/uL Absolute Basophils (0.0-0.2) 10^3/uL Sodium (136-145) mmol/L Potassium (3.5-5.1) mmol/L Chloride (98-107) mmol/L Carbon Dioxide (21.0-32.0) mmol/L Anion Gap (3-11) mmol/L BUN (7-18) mg/dL Creatinine (0.70-1.30) mg/dL Estimated GFR/1.73 m2 (mL/min/1.73m2) Glucose (74-106) mg/dL Calcium (8.5-10.1) mg/dL Total Bilirubin (0.2-1.0) mg/dL AST (15-37) U/L ALT (16-63) U/L Alkaline Phosphatase (46-116) U/L Total Protein (6.4-8.2) g/dL Albumin (3.4-5.0) g/dL Urine Color (Yellow) Yellow Urine Clarity (Clear) Clear Urine pH (5-8) 6.0 Ur Specific [place] (1.005-1.025) >= 1.030 H Urine Protein (Negative) mg/dL Negative Urine Ketones (Negative) mg/dL Trace H Urine Blood (Negative) Trace-intact H Urine Nitrite (Negative) Negative Urine Bilirubin (Negative) Negative Urine Urobilinogen (Up TO 0.2) EU/dL 0.2 Ur Leukocyte Esterase (Negative) Negative Urine RBC (0-2) HPF 3-5 H Urine WBC (0-5) HPF 0-2 Ur Epithelial Cells (Negative) HPF Rare Urine Crystals (Negative) HPF Negative Urine Bacteria (Negative) HPF Few Urine Casts (Negative) LPF Negative Urine Mucus (Negative) Moderate Ur Culture Indicated? Yes Urine Glucose (Negative) mg/dL Negative Urine Opiates Screen (Negative) Urine Methadone Screen (Negative) Ur Barbiturates Screen (Negative) Ur Tricyclics Screen (Negative) Ur Amphetamines Screen (Negative) U Benzodiazepines Scrn (Negative) Urine Cocaine Screen (Negative) Ur THC Screen (Negative) Ethyl Alcohol (<10) mg/dL <Brian Harrell MD - Last Filed: 03/09/21 21:07> 03/09/21 2100 --patient hallucinating screaming intermittently. Second certification was performed by [facility] psychiatrist. Awaiting transfer to psychiatric treatment facility. I have initiated consultation with [facility] telepsych service. I will offer patient antipsychotic risperidone 2 mg and anxiolytic Ativan 1 mg. HPI <Raiza Ponce DO - Last Filed: 03/16/21 16:02> General Mode of arrival: EMS. Date/Time Provider Initiated Documentation: 03/09/21 07:35. Limitations to Documentation: altered mental status. Information obtained by: patient. HPI Narrative: Patient is a 25-year-old male with a history of ADD and a family history of paranoid schizophrenia presents for hallucinations after smoking marijuana. Difficult to obtain a history from patient as he states I am Haakn Norma and I am against slavery when asking basic questions of why he is here. He denies suicidal ideation. When asked if he has homicidal ideation, he appears to respond to internal stimuli and start talking to himself. Related Data Home Medications Medication Instructions Recorded Confirmed Unknown [No Known Home Meds] 05/16/18 03/07/21 Allergies Allergy/AdvReac Type Severity Reaction Status Date / Time No Known Allergies Allergy Unverified 03/07/21 19:13 General Stated Complaint: PsychEval RAOUL: 2 Review of Systems <Raiza Ponce DO - Last Filed: 03/16/21 16:02> All systems reviewed & are unremarkable except as noted in HPI and below Constitutional Constitutional: Reports as per HPI, Denies chills and Denies fever(s) Eyes Eyes: Denies blurry vision ENT Ears, Nose, Mouth, and Throat: Denies dizziness, Denies sore throat and Denies throat swelling Cardiovascular Cardiovascular: Denies chest pain and Denies dyspnea Respiratory Respiratory: Denies cough and Denies dyspnea Gastrointestinal Gastrointestinal: Denies abdominal pain, Denies diarrhea and Denies vomiting Genitourinary Genitourinary: Denies hematuria and Denies dysuria Musculoskeletal Musculoskeletal: Denies back pain and Denies numbness Integumentary/Breasts Skin/Breast: Denies lesions and Denies rash Neurologic Neurologic: Denies dizziness, Denies localized weakness and Denies numbness Psychiatric Psychiatric: Reports auditory hallucinations Allergic/Immunologic Allergic/Immunologic: Denies throat swelling PFSH <Raiza Ponce DO - Last Filed: 03/16/21 16:02> All Active Problems Anxiety (Chronic) Chest pain (Acute) Stress at home (Acute) Acute psychosis (Acute) Hypertriglyceridemia without hypercholesterolemia (Acute) Family history of coronary artery disease (Chronic) Medical History ADD (attention deficit disorder) Surgical History No history of previous surgery Family History (Updated 03/10/21 @ 16:08 by Antonio Hill MD) Father Hypertension Mother Schizophrenia Social History Smoking/Tobacco Use Status: Former Tobacco Use Tobacco: How many years used: 2 Smokeless tobacco user: other Smoking risk assessment performed?: Yes Alcohol Intake: current Alcohol Intake frequency: a few times a week Alcohol type: beer Drug use: Daily Substance use type: marijuana Caregiver/Support person: No Household members: other Details: lives with dad Communication Needs: None 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 Exam <DO Meri Duff Last Filed: 03/16/21 16:02> Const General: cooperative, healthy appearing and no acute distress HENMT Head: normal to inspection Face and sinus: normal facial exam Eyes General: appearance normal, both eyes and all related structures Pupils: PERRL EOM: EOM intact bilaterally Neck Neck: normal visual inspection and No submandibular swelling Lymphatic: no lymphadenopathy noted Chest Chest: normal inspection of the chest and no tenderness Resp Effort & Inspection: normal respiratory effort and able to speak in complete sentences Auscultation: clear to auscultation bilaterally Cardio Rate: regular rate Rhythm: regular rhythm GI Inspection: normal to inspection Palpation: soft, not firm, not rigid and nontender Auscultation: normal bowel sounds Male General Exam: Yes normal external exam Back/Spine/Pelvis Thoracic/Lumbar Spine: thoracic and lumbar spine normal to inspection Pelvis: no pain with anterior-posterior compression Skin General skin exam: no rashes or lesions noted Neuro General: patient alert, patient awake and patient oriented x3 Cognition: normal cognition Speech: speech normal Motor: muscle tone normal throughout Sensory Exam: no sensory deficits noted Extrem General: normal to inspection, full ROM, capillary refill normal, no calf tenderness bilaterally and no edema Psych Appearance: grossly normal Mental Status: mental status grossly normal Speech and Movement: speech and movement normal Mood: irritable mood Affect: anxious affect Attitude: avoids eye contact Thought Process: flight of ideas and illogical Thought Content: delusions and hallucinations auditory Course <DO Meri Duff Last Filed: 03/16/21 16:02> Vital Signs Vital signs: Vital Signs Temperature 95.7 F L 03/09/21 07:24 Pulse 85 03/09/21 07:24 Respiratory Rate 8 L 03/09/21 07:24 Blood Pressure 133/80 03/09/21 07:24 Pulse Oximetry 98 03/09/21 07:24 Temperature 95.7 F L 03/09/21 07:24 Pulse 85 03/09/21 07:24 Respiratory Rate 8 L 03/09/21 07:24 Respiratory Effort Non-Labored 03/09/21 07:31 Blood Pressure 133/80 03/09/21 07:24 Blood Pressure Position Sitting 03/09/21 07:24 Pulse Oximetry 98 03/09/21 07:24 Oxygen Delivery Method Room Air 03/09/21 07:24 Oxygen Flow Rate 0 03/09/21 07:24 Pain Level 0 03/09/21 07:24 Sign Out <Raiza Ponce DO - Last Filed: 03/16/21 16:02> Sign Out Data: Sign Out Comment: Acute psychosis. Medically cleared. EE completed. Pending placement. Last updated by Raiza Ponce DO at 03/09/21 14:55 Sign Out Comment: Second certification complete. Telepsych consult in AM. Awaiting transfer. Last updated by Brian Harrell MD at 03/09/21 23:05 Sign Out Comment: No issues overnight. Awaiting placement Last updated by Satya Vaughn MD at 03/10/21 07:53 Sign Out Comment: Evaluated by Dr. Hill today, now on daily Zyprexa and Ativan. Initial EE denied by legal due to unclear concern for risk of harm. EE completed for a second time as pt demonstrates severely impaired self-care and does not have decisional making capacity due to acute psychosis. Second certification completed. Awaiting placement. Last updated by Raiza Ponce DO at 03/10/21 20:08 Sign Out Comment: No issues overnight. Continues to be involuntary awaiting placement. Last updated by Satya Vaughn MD at 03/11/21 07:17
[2021-03-09 08:31] LABS: Abs Immature Grans 0.02 10^3/uL (0.0-0.06); Absolute Basophil Count 0.04 10^3/uL (0.0-0.2); Absolute Eosinophil Count 0.03 10^3/uL (0.0-0.7); Absolute Lymphocyte Count 1.29 10^3/uL (1.2-3.4); Absolute Monocyte Count 0.51 10^3/uL (0.1-0.8); Absolute Neutrophil Count 6.34 10^3/uL (1.2-6.7); Basophils % 0.5; Eosinophils % 0.4; HCT 43.3 % (40.0-50.0); HGB 14.5 g/dL (13.5-17.5); Immature Grans % 0.2; Lymphocytes % 15.7; MCH 29.1 pg (27.0-33.0); MCHC 33.5 % (32.0-36.0); MCV 86.9 fL (80-95); MPV 9.6 fL (8.0-11.0); Monocytes % 6.2; Nucleated RBC 0 %; Platelet Count 266 10^3/uL (130-400); RBC 4.98 10^6/uL (4.36-5.78); RDW 11.7 % (11.8-14.1); RDW-SD 37.5 fL; WBC 8.23 10^3/uL (4.4-10.8)
[2021-03-09 08:53] LABS: ALT 31 U/L (16-63); AST 19 U/L (15-37); Albumin 4.7 g/dL (3.4-5.0); Alkaline Phosphatase 49 U/L (46-116); Anion Gap 8.3 mmol/L (3-11); BUN 20 mg/dL (7-18); Bilirubin, Total 0.6 mg/dL (0.2-1.0); CO2 27.7 mmol/L (21.0-32.0); CREATININE 1.2 mg/dL (0.70-1.30); Calcium 9.3 mg/dL (8.5-10.1); Chloride 105 mmol/L (98-107); Glucose 104 mg/dL (74-106); Potassium 4.3 mmol/L (3.5-5.1); Sodium 141 mmol/L (136-145); Total Protein 7.7 g/dL (6.4-8.2)
[2021-03-09 09:10] LABS: ETHANOL BLOOD < 3.0 mg/dL (<10)
[2021-03-09 09:22] LABS: Bilirubin Negative (Negative); Blood Trace-intact (Negative); Clarity Clear (Clear); Glucose Negative (Negative); Ketones Trace mg/dL (Negative); Leukocyte Esterase Negative (Negative); Nitrite Negative (Negative); Specific Gravity >= 1.030 (1.005-1.025); Urobilinogen 0.2 EU/dL (Up TO 0.2)
[2021-03-09 09:28] LABS: *AMPHETAMINES SCREEN URINE Negative (Negative); *BARBITURATES SCREEN URINE Negative (Negative); *BENZODIAZEPINES SCREEN URINE Negative (Negative); Cannabinoids THC Positive (Negative); Cocaine Screen,Urine Negative (Negative); METHADONE URINE SCREEN Negative (Negative); OPIATES URINE SCREEN Negative (Negative)
[2021-03-09 09:31] LABS: Tricyclic Antidepressants Negative (Negative)
[2021-03-09 09:40] LABS: Bacteria Few HPF (Negative); Crystals Negative HPF (Negative); Epithelial Cells Rare HPF (Negative); Mucus Moderate (Negative); WBC 0-2 HPF (0-5)
[2021-03-09 09:41] LABS: C & S Indicated? Yes; Casts Negative LPF (Negative)
--- NOTE | 2021-03-09 12:03 | CMSP_ITS ---
- If Service Date Differs Date of service: 03/09/21 Time of Service: 12:03 Care Management Safety Plan Status: Involuntary - Reason for Wait Reason for Wait: Inpatient Admission INVOLUNTARY FOR INPATIENT PSYCHIATRIC STABILIZATION. A huddle is held at 13:[address] Ponce, ED Provider, Elana, Nursing Biofuels Processing Technician, POLI Sutton, and PETER Martinez, in attendance. Safety plan has been established to meet the needs of the patient, and consideration of the care team, to adhere to patient goals, identify restrictions based on behavioral status, address nutrition, and determine allowed personal belongings, tools for hygiene and personal care. Determine level of activity including ambulation, level of supervision, visitors, and determine privileges based on behaviors and level of engagement by pt. SAFETY PLAN: 1. Will remain on SI/HI precautions. In Paper Clothes 2. Will remain in room under direct supervision of one-on-one staff at all times provided by [employer], KRISSY, LIMNOLOGY TEACHER electric motor fitter. 3. May have paper cups, plates, finger foods as well as a cardboard spoon with which to eat meals. 4. Follow [facility] Management of the Admitted Behavioral Health Patient policy. 5. May shower with supervision and at RN discretion. 6. No personal belongings. 7. Visitors: Per [facility] Covid policy and at RN discretion. 8. Activities: Soft cart items, music tablet, television if available, and other activities at RN discretion. 9. Bathroom privileges with escort while in the ED; may use bathroom in room on Med/Surg without limitation. 10. Phone: Limited to legal contacts. 11. Due to INVOLUNTARY status, patient is being held at [facility] by the Department of Mental Health ([facility]) until 2nd certification by [facility] Psychiatrist can be performed (within 24 hours). Staff will provide de-escalation support (CPI) as needed. If patient wishes to leave [facility], staff will contact [facility] Crisis Screener ([phone]) and On-Call Methods Analyst Data Processing ([phone]) as soon as possible. In the event of elopement, notify [place] Police ([phone]). Patient is currently involuntarily at [facility]. [facility] Frontline Transfer Iron Operator will continue seeking placement. Please contact the Pelt Grader Methods Analyst Data Processing ) for any needed changes to Safety Plan. Safety plan has been provided to interdepartmental care team. Patient will be transported by airline managerial supervisor at time of discharge.
--- NOTE | 2021-03-09 12:03 | PDOC.CMSAFED ---
- If Service Date Differs Date of service: 03/09/21 Time of Service: 12:03 Care Management Safety Plan Status: Involuntary - Reason for Wait Reason for Wait: Inpatient Admission INVOLUNTARY FOR INPATIENT PSYCHIATRIC STABILIZATION. A huddle is held at 13:[address] Ponce, ED Provider, Elana, Nursing Fleet Manager/Dispatch, POLI Sutton, and PETER Martinez, in attendance. Safety plan has been established to meet the needs of the patient, and consideration of the care team, to adhere to patient goals, identify restrictions based on behavioral status, address nutrition, and determine allowed personal belongings, tools for hygiene and personal care. Determine level of activity including ambulation, level of supervision, visitors, and determine privileges based on behaviors and level of engagement by pt. SAFETY PLAN: 1. Will remain on SI/HI precautions. In Paper Clothes 2. Will remain in room under direct supervision of one-on-one staff at all times provided by CPSO, KRISSY, WIND INSTRUMENT REPAIRER sales and marketing coordinator. 3. May have paper cups, plates, finger foods as well as a cardboard spoon with which to eat meals. 4. Follow [facility] Management of the Admitted Behavioral Health Patient policy. 5. May shower with supervision and at RN discretion. 6. No personal belongings. 7. Visitors: Per [facility] Covid policy and at RN discretion. 8. Activities: Soft cart items, music tablet, television if available, and other activities at RN discretion. 9. Bathroom privileges with escort while in the ED; may use bathroom in room on Med/Surg without limitation. 10. Phone: Limited to legal contacts. 11. Due to INVOLUNTARY status, patient is being held at [facility] by the Department of Mental Health ([facility]) until 2nd certification by [facility] Psychiatrist can be performed (within 24 hours). Staff will provide de-escalation support (CPI) as needed. If patient wishes to leave [facility], staff will contact [facility] Crisis Screener ([phone]) and On-Call Pc Technician ([phone]) as soon as possible. In the event of elopement, notify [place] [employer] ([phone]). Patient is currently involuntarily at [facility]. [facility] Frontline Booster Station Operator will continue seeking placement. Please contact the Consulting Psychologist Pc Technician ([phone]) for any needed changes to Safety Plan. Safety plan has been provided to interdepartmental care team. Patient will be transported by rn imaging at time of discharge.
[2021-03-09 13:24] LABS: Source Nasal/Nares
[2021-03-09 14:03] LABS: COVID-19 PCR Negative (Negative)
--- NOTE | 2021-03-09 14:15 | PDOC.ERCMPRO ---
- If Service Date Differs Date of service: 03/09/21 Time of Service: 14:15 Care Management Progress Note S/O: Emily is sitting up in bed watching a show about the arctic on the tablet when CM comes to meet with him. He engages in conversation with CM but quickly turns his attention to Hakan who appears to be a visual/auditory hallucination. Emily no longer makes any kind of eye contact with CM and instead stares at the wall. He converses with Hakan for an extended period of time, telling him he is a good man and that no one blames him for his [place] dying [place]. He goes on to say that his mother is crazy and that he's tried to take care of her but couldn't because it was too stressful. Emily tells Hakan that he bears the weight of several B[place] generations on his shoulders and is just trying to do the right thing because that is what a real man does. Emily continues his conversation with Hakan for several minutes before finally saying goodbye to Hakan and re-engaging with CM. Emily tells CM he plans on spending the day watching television in his room and would appreciate not having any interruptions. A: Emily is a 25 year old male who presents to [facility] on 03/09/2021 for psychosis. P: Emily comes to the hospital voluntarily but is subsequently placed on involuntary status due to his current inability to make decisions for himself. He will remain at [facility] while awaiting a psychiatric placement. Emily will be reassessed on a daily basis by [facility] until a bed can be secured for him. Referrals are [place] to [facility], [facility], and [facility] for review. CM will continue to follow. - Status Status: Involuntary - Reason for Wait Reason for Wait: Inpatient Admission
--- NOTE | 2021-03-09 20:53 | NUR.NOTE ---
Request for appt with [facility] for 03/10/[address] Radha Harrell left on message voicemail at 20:55.Nursing Note:
[2021-03-10] MEDS: LORazepam 1 MG TAB PO ×3 (00:42→19:38)
[2021-03-10] MEDS: risperiDONE 1 MG TAB 2 MG PO (00:43)
--- NOTE | 2021-03-10 02:20 | SUR.PHASEI ---
pt sleeping at this time
[2021-03-10 08:24] VITALS: BP 123/71; PULSE 83; RESP 20; TEMP 36.5; O2SAT 99
--- NOTE | 2021-03-10 10:16 | PDOC.MHCN_ITS ---
Date of service: 03/09/21 Time of Service: 10:16 Mental Health Crisis Note Presenting Issue How did you arrive at the ED and why did you come: Pt arrived via ambulance after father called 911. Precipitating Factors Pt denied SI and HI to this clinician however, he is extremely delusional and unable to follow a line of questions or 1 step directions. He is a risk to himself and others. Disposition BEHAVIOR: Pt is responding ot internal stimuli and although talking is unable to answer questions directly. He is speaking in word salad. EYE CONTACT: Eye contact is fair only occasionally looking up to see this screen. Mostly he looks to the floor or ceiling. MOOD: Mood is labile AFFECT: Affect is congruent. APPETITE: Pt reported fine SLEEP(trouble falling/staying asleep: Pt reported fine Plan Pt was placed on EE status by this clinician and Dr. Ponce. He will have a second cert later today and will be assessed twice daily by [facility]. Signature Clinician's Name/Title: Corrie Lantigua MS, [facility] Emergency Services Clinician, [facility]
[2021-03-10] MEDS: OLANZapine 10 MG TAB PO ×2 (11:15→19:38)
--- NOTE | 2021-03-10 13:16 | PDOC.CMSAFED ---
- If Service Date Differs Date of service: 03/10/21 Time of Service: 13:16 Care Management Safety Plan Status: Involuntary - Reason for Wait Reason for Wait: Inpatient Admission INVOLUNTARY FOR INPATIENT PSYCHIATRIC STABILIZATION. Safety plan has been established to meet the needs of the patient, and consideration of the care team, to adhere to patient goals, identify restrictions based on behavioral status, address nutrition, and determine allowed personal belongings, tools for hygiene and personal care. Determine level of activity including ambulation, level of supervision, visitors, and determine privileges based on behaviors and level of engagement by pt. SAFETY PLAN: 1. Will remain on SI/HI precautions. In Paper Clothes 2. Will remain in room under direct supervision of one-on-one staff at all times provided by CPSO, REHAB DEPARTMENT MANAGER, DINING SERVICES MANAGER sulfide head operator. 3. May have paper cups, plates, finger foods as well as a cardboard spoon with which to eat meals. 4. Follow [facility] Management of the Admitted Behavioral Health Patient policy. 5. May shower with supervision and at RN discretion. 6. No personal belongings. 7. Visitors: Per [facility] Covid policy and at RN discretion. 8. Activities: Soft cart items, music tablet, television if available, and other activities at RN discretion. 9. Bathroom privileges with escort while in the ED; may use bathroom in room on Med/Surg without limitation. 10. Phone: Limited to legal contacts. 11. Due to INVOLUNTARY status, patient is being held at [facility] by the Department of Mental Health ([facility]). A 2nd certification by [facility] Psychiatrist occurred Sunday evening and patient was certified to be a person in need of treatment. Staff will provide de-escalation support (CPI) as needed. If patient wishes to leave [facility], staff will contact [facility] Crisis Screener ([phone]) and On-Call Senior Windows Systems Administrator ([phone]) as soon as possible. In the event of elopement, notify [place] [employer] ([phone]). Patient is currently involuntarily at [facility]. [facility] Frontline Molder Floor will continue seeking placement. Please contact the Organisational Psychologist Senior Windows Systems Administrator ([phone]) for any needed changes to Safety Plan. Safety plan has been provided to interdepartmental care team. Patient will be transported by [facility] at time of discharge.
[2021-03-10 13:18] VITALS: BP 114/81; PULSE 72; RESP 20; TEMP 37.3; O2SAT 98
--- NOTE | 2021-03-10 15:06 | CMPROGNOTE_ITS ---
- If Service Date Differs Date of service: 03/10/21 Time of Service: 15:06 Care Management Progress Note S/O: Emily continues to experience psychosis with visual and auditory hallucinations. His appetite has been poor since being at [facility] and he continues to either eat very little or refuse food all together, but did take Ativan and Zyprexa today. Emily met with Dr. Hill via telehealth this morning and also met with Corrie of [facility] for a re-evaluation. He met with a State Psychiatrist for the Second Certification by Psychiatrist last evening and the EE was upheld. [facility] Legal subsequently rejected the EE paperwork due to the narrative failing to show the level of dangerousness to self or others required to hold someone involuntarily. The EE paperwork has since been rewritten and resubmitted to [facility]. A: Emily is a 25 year old male who presents to [facility] on 03/09/2021 for psychosis. P: Emily comes to the hospital voluntarily but is subsequently placed on involuntary status due to his current inability to make decisions for himself. He will remain at [facility] while awaiting a psychiatric placement. Emily will be reassessed on a twice daily basis by [facility] until a bed can be secured for him. Referrals are faxed to [facility], [facility], and [facility] for review. CM will continue to follow. - Status Status: Involuntary - Reason for Wait Reason for Wait: Inpatient Admission
--- NOTE | 2021-03-10 15:06 | PDOC.ERCMPRO ---
- If Service Date Differs Date of service: 03/10/21 Time of Service: 15:06 Care Management Progress Note S/O: Emily continues to experience psychosis with visual and auditory hallucinations. His appetite has been poor since being at [facility] and he continues to either eat very little or refuse food all together, but did take Ativan and Zyprexa today. Emily met with Dr. Hill via telehealth this morning and also met with Corrie of [facility] for a re-evaluation. He met with a State Psychiatrist for the Second Certification by Psychiatrist last evening and the EE was upheld. [facility] Legal subsequently rejected the EE paperwork due to the narrative failing to show the level of dangerousness to self or others required to hold someone involuntarily. The EE paperwork has since been rewritten and resubmitted to [facility]. A: Emily is a 25 year old male who presents to [facility] on 03/09/2021 for psychosis. P: Emily comes to the hospital voluntarily but is subsequently placed on involuntary status due to his current inability to make decisions for himself. He will remain at [facility] while awaiting a psychiatric placement. Emily will be reassessed on a twice daily basis by [facility] until a bed can be secured for him. Referrals are faxed to [facility], [facility], and [facility] for review. CM will continue to follow. - Status Status: Involuntary - Reason for Wait Reason for Wait: Inpatient Admission
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
--- NOTE | 2021-03-10 18:50 | PDOC.MHCN ---
Date of service: 03/10/21 Time of Service: 18:50 Mental Health Crisis Note Presenting Issue How did you arrive at the ED and why did you come: Pt arrived on 03.09.2021 via ambulance for an altered mental status.. Precipitating Factors Pt is vaguely suicidal and stated that he should . He deneid HI. He is experiencing delusions and paranoia as of the 2nd certification this afternoon. Disposition BEHAVIOR: Pt is engaged however, he is not answering anything directly. Please see EE written for 03.10.2021. EYE CONTACT: Pt makes fair eye contact today. MOOD: Pt's mood appeared anxious. AFFECT: Pt's affect is congruent. APPETITE: Pt reported he is not eating and reports stated that this makes 3 days without food. SLEEP(trouble falling/staying asleep: Pt reported not sleeping and reports stated that this makes 4 days without sleep. Plan Pt had a new EE written and his second certification was had with Dr. Grossman. She was certifying the EE. Signature Clinician's Name/Title: Corrie Lantigua MS, [facility] Emergency Services Clinician, [facility]
[2021-03-10 19:53] LABS: TSH (W/Ref FT4) 3.35 uIU/mL (0.36-3.74)
--- NOTE | 2021-03-10 20:43 | SUR.PHASEI ---
pt conversing appropriately pt calm and cooperative non-delusional at this time pt engaged in care
--- NOTE | 2021-03-11 06:07 | NUR.NOTE ---
Patient woke up and was groaning as if he was in pain. This procedure writer asked him if he was in pain and he stated, Yes, I get uncomfortable if I lay in bed too long and I've been resting for a while now. RN notified. Offered patient water and some fresh warm blankets. Patient accepted. Patient is pleasant at this time and waiting for some Tylenol. Patient laid back down and is now resting with eyes closed. Nursing Note:
[2021-03-11] MEDS: Acetaminophen 325 MG TAB 650 MG PO (06:13)
[2021-03-11] MEDS: OLANZapine 10 MG TAB PO (09:58)
[2021-03-11 10:22] VITALS: BP 134/84; PULSE 106; TEMP 37.1; O2SAT 98
--- NOTE | 2021-03-11 12:18 | CMSP_ITS ---
- If Service Date Differs Date of service: 03/11/21 Time of Service: 12:18 Care Management Safety Plan Status: Involuntary - Reason for Wait Reason for Wait: Inpatient Admission INVOLUNTARY FOR INPATIENT PSYCHIATRIC STABILIZATION. Safety plan has been established to meet the needs of the patient, and consideration of the care team, to adhere to patient goals, identify restrictions based on behavioral status, address nutrition, and determine allowed personal belongings, tools for hygiene and personal care. Determine level of activity including ambulation, level of supervision, visitors, and determine privileges based on behaviors and level of engagement by pt. SAFETY PLAN: 1. Will remain on SI/HI precautions. In Paper Clothes 2. Will remain in room under direct supervision of one-on-one staff at all times provided by CPSO, ZONE MAINTENANCE TECHNICIAN, LOGISTICS TEAM LEADER professor of education. 3. May have paper cups, plates, finger foods as well as a cardboard spoon with which to eat meals. 4. Follow [facility] Management of the Admitted Behavioral Health Patient policy. 5. May shower with supervision and at RN discretion. 6. No personal belongings. 7. Visitors: Per [facility] Covid policy and at RN discretion. 8. Activities: Soft cart items, music tablet, television if available, and other activities at RN discretion. 9. Bathroom privileges with escort while in the ED; may use bathroom in room on Med/Surg without limitation. 10. Phone: Limited to legal contacts. 11. Due to INVOLUNTARY status, patient is being held at [facility] by the Department of Mental Health ([facility]). A 2nd certification by [facility] Psychiatrist occurred Sunday evening and patient was certified to be a person in need of treatment. Staff will provide de-escalation support (CPI) as needed. If patient wishes to leave [facility], staff will contact [facility] Crisis Screener ([phone]) and On-Call Production Support Engineer ([phone]) as soon as possible. In the event of elopement, notify [place] [employer] Police ([phone]). Patient is currently involuntarily at [facility]. [facility] Frontline Insurance Account Manager will continue seeking placement. Please contact the Collector Of Aquarium Specimens Production Support Engineer ([phone]) for any needed changes to Safety Plan. Safety plan has been provided to interdepartmental care team. Patient will be transported by [facility] at time of discharge.
--- NOTE | 2021-03-11 12:55 | PSYCHFUP_ITS ---
Date of Service Date of service: 03/11/21 Time of Service: 12:55 Assessment and Plan Assessment and plan (1) Acute psychosis: Status: Acute Assessment and plan: Sunstantial improvements from initial presentation; Prominent psychotic features remains, though better self care and safety are evident. Continue olanzapine, may consolidate dose to 20 mg HS Continue lorazepam PRN for anxiety or agitation Transfer to inpatient psychiatry when bed available Will sign off case for now. Pleae call if further consult required. Psychiatry Subjective Narrative:: Seen in follow up through telemdicine. Adherent to recommended olanzapine. Slept overnight. No aggressive or out of control behavior. More c ooperative and calm. Able to eat today. He is more oriented and better able to engage in a salient discussion. He discusses his belief that he was Hakan Green and feels that he needs to apologize to him and is observed saying Sorry, Hakan on multiple occasions. Thoughts are better organized, but he still appears internally preoccupied. He describes how wierd he has been feeling. We discuss the johnson diagnosis of schizophrenia given his family history and presentation. Olanzapine is well tolerated. Referral to [facility] is pending. He is encouraged to continue medications and stay engaged with treatment providers and he indicates he plans to do so. Exam Narrative Exam Narrative: Less agitated. Thought process is clearer, though still moderately confused and disorganized. continues to respiond to internal stimulation but to a lesser degree. Mood is more subdued, affect is better mod ulated. Anxiety is moderate. Auditory ahllucination and delusions persist, though appear improved. Insight and judgement are somewhat improved. Objective Medications: Active Inpatient Medications Report Generic Name Dose Route Start Last Admin Trade Name Freq PRN Reason Stop Dose Admin Acetaminophen 650 mg 03/11/21 06:08 03/11/21 06:13 Acetaminophen 325 Mg Tab PO 650 mg Q6H PRN PRN Administration Lorazepam 1 mg 03/10/21 11:00 03/10/21 19:38 Lorazepam 1 Mg Tab PO 1 mg Q2H PRN Administration Olanzapine 10 mg 03/10/21 11:05 03/11/21 09:58 Olanzapine 10 Mg Tab PO 10 mg BID MAURY Administration Discontinued Medications Generic Name Dose Route Start Last Admin Trade Name Freq PRN Reason Stop Dose Admin Lorazepam 1 mg 03/09/21 20:53 01/06/22 00:42 Lorazepam 1 Mg Tab PO 03/09/21 20:54 1 mg NOW ONE Administration Risperidone 2 mg 03/09/21 20:53 03/10/21 00:43 Risperidone 1 Mg Tab PO 03/09/21 20:54 2 mg NOW ONE Administration Labs Last 24 Hours: Laboratory Results - last 24 hr 03/10/21 19:21 TSH 3.35 Vitals: Vital Signs - 24 hr 03/10/21 13:18 03/11/21 10:22 Temperature 37.3 C 37.1 C Pulse 72 106 H Respiratory Rate 20 Blood Pressure 114/81 134/84 Pulse Oximetry 98 98
[2021-03-11] MEDS: LORazepam 1 MG TAB PO (13:13)
--- NOTE | 2021-03-11 14:35 | PDOC.MHCN_ITS ---
Date of service: 03/11/21 Time of Service: 14:35 Mental Health Crisis Note Presenting Issue How did you arrive at the ED and why did you come: Pt arrived on 03.09.21 for use of THC with hallucinations. Precipitating Factors Pt denied SI and HI. He is still having some delusions although not as bad since he began taking the Zoloft. Disposition BEHAVIOR: Pt is cooperative and engaged but minimally and not as tangential and labile. He still has no memory of why he came to the ED or how. EYE CONTACT: Pt made fair eye contact. MOOD: Pt presents as depressed and sleepy today. AFFECT: Affect is congruent with mood. APPETITE: Pt reported that he did eat today. SLEEP(trouble falling/staying asleep: Pt has been sleeping since staarting his medications. Plan Pt was accepted by [facility] today and transported by [facility]. Signature Clinician's Name/Title: Corrie Lantigua MS, [facility] Emergency Services Clinician, [facility]
[2021-03-11 14:40] VITALS: BP 134/84; PULSE 106; RESP 20; TEMP 37.1; O2SAT 98
--- NOTE | 2021-03-11 14:45 | CMPROGNOTE_ITS ---
- If Service Date Differs Date of service: 03/11/21 Time of Service: 14:45 Care Management Progress Note S/O: Emily is much improved today. He slept well last evening, ate 100% of his breakfast and lunch, and is taking medication. He is sitting on the side of the bed when comes to meet with him to let him know he will soon be transferred to the [facility]) in [place], [place]. Emily reports he is feeling really tired and says he will go wherever we want him to go. A: Emily is a 25 year old male who presents to [facility] on 03/09/2021 for psychosis. P: Emily is accepted by [facility] for psychiatric stabilization. He will follow up with his PCP, NK and plan of care as directed upon his discharge from [facility]. [facility] provide transport to [place].
--- NOTE | 2021-03-16 15:48 | NUR.NOTE ---
Accessed patient record to get the name of the physician that the patient was being transferred to. Jelena Mast Nursing Note:
== END 2021-03-11 14:39 | disposition short-term general hospital (02) ==
PROVIDERS: Emergency Provider Physician Assistant; PCP Family Medicine
DX: F23 Brief psychotic disorder (principal); R44.3 Hallucinations, unspecified
CPT/HCPCS: 36415; 80053; 80307; 87635; 99285; Q3014; 80320; 81003; 81015; 84443; 85025; 87086; 99284